=== PATIENT | male | born 1995 | race Asian ===

== ENCOUNTER 2023-06-15 21:26 | Emergency (ER) | payer OTHER ==
[~2023-06-15] VITALS: Ht 167.6 cm; Wt 70.0 kg
[2023-06-15 21:30] VITALS: BP 136/92; PULSE 78; RESP 17; TEMP 98.2
[2023-06-15] MEDS ORDERED: ACETAMINOPHEN 500 MG TABLET PO ONE (21:45)
[2023-06-15] MEDS ORDERED: KETOROLAC TROMETHAMINE 60 MG/2 ML VIAL IM ONE (21:45)
[2023-06-15] MEDS ORDERED: ACET-66 PO (23:53)
[2023-06-15] MEDS ORDERED: IBUP-1554 PO (23:53)
== END 2023-06-16 00:16 | disposition home or self-care (01) ==
LOC: EMS 21:26
DX: S13.4XXA Sprain of ligaments of cervical spine, initial encounter (principal); S40.012A Contusion of left shoulder, initial encounter; S30.0XXA Contusion of lower back and pelvis, initial encounter; V69.9XXA Occupant (driver) (passenger) of heavy transport vehicle injured in unspecified traffic accident, initial encounter; Y93.89 Activity, other specified; Y92.89 Other specified places as the place of occurrence of the external cause; Y99.8 Other external cause status
CPT/HCPCS: 99284; 71045; 72040; 72070; 72100; 73030; 96372; J1885